=== PATIENT | male | born 1950 | race Caucasian/White ===

== ENCOUNTER 2024-02-18 14:56 | Observation (INO) | payer MEDICARE ==
[~2024-02-18] VITALS: Ht 172.7 cm; Wt 76.2 kg
[~2024-02-18 14:56] MED LIST: ASPIRIN CHEW81 MG PO; JALYN 0.5-0.41 EACH; METOPROLOL SUCC50 MG PO; OSTERA TABLET1 EACH PO
[2024-02-18] MEDS ORDERED: ONDANSETRON HCL INJ 2MG/ML 2ML 2 MG/ML VIAL IV PRN (16:15)
[2024-02-18] MEDS ORDERED: Morphine 4mg INJECTION 4 MG/ML INJ IV PRN (16:15)
[2024-02-18 16:27] LABS: BASOPHILS # (AUTO) 0.1 (0.0-0.1); BASOPHILS % 0.6 % (0.0-1.0); EOSINOPHILS # (AUTO) 0.1 (0.0-0.4); HEMATOCRIT 45.2 % (38.2-49.6); HEMOGLOBIN 15.4 g/dL (14.0-18.0); LYMPHOCYTES # (AUTO) 1.5 (1.0-3.2); LYMPHOCYTES % 13.6 % (18.0-39.1); MEAN CORPUSCULAR HEMOGLOBIN 32.8 pg (28-32); MEAN CORPUSCULAR HGB CONC 34.1 g/dL (31-35); MEAN CORPUSCULAR VOLUME 96.4 fL (81-99); MONOCYTES # (AUTO) 0.7 (0.2-0.8); MONOCYTES % 6.7 % (4.4-11.3); NEUTROPHILS # (AUTO) 8.6 (2.1-6.9); NEUTROPHILS % 77.8 % (38.7-80.0); PLATELET COUNT 240 x10e3/uL (140-360); RED BLOOD COUNT 4.69 x10e6/uL (4.3-5.7); RED CELL DISTRIBUTION WIDTH 12.3 % (11.7-14.4); WHITE BLOOD COUNT 11.02 x10e3/uL (4.8-10.8)
[2024-02-18] MEDS: SODIUM CHLORIDE 0.9% 1000ML 1,000 ML IV SCH (16:33)
[2024-02-18 16:50] LABS: ALBUMIN 4.2 g/dL (3.5-5.0); ALBUMIN/GLOBULIN RATIO 1.6 (0.8-2.0); ANION GAP 15.9 mmol/L (8-16); BILIRUBIN,TOTAL 1.3 mg/dL (0.2-1.2); CALCIUM 9.3 mg/dL (8.4-10.2); CREATININE, SERUM 1.25 mg/dL (0.72-1.25); POTASSIUM 3.9 mmol/L (3.5-5.1); TOTAL PROTEIN 6.8 g/dL (6.5-8.1)
[2024-02-18 18:00] VITALS: PULSE 67; RESP 16; TEMP 98.1
[2024-02-18 19:21] VITALS: BP 137/58; PULSE 89; RESP 18; TEMP 98.1; O2SAT 97
[2024-02-18] MEDS: METRONIDAZOLE 750MG/NS 150ML 150 ML IV SCH (19:34)
[2024-02-18 20:18] VITALS: PULSE 89; RESP 18; O2SAT 97
[2024-02-18 20:30] VITALS: BP 137/58; PULSE 89; RESP 18; TEMP 98.1; O2SAT 97
[2024-02-18] MEDS ORDERED: PROTONIX20 MG PO (21:39)
[2024-02-18] MEDS ORDERED: HYDROCHLOROTHIA25 MG PO (21:39)
[2024-02-18 23:09] VITALS: BP 134/72; PULSE 95; RESP 18; TEMP 98.3; O2SAT 98
[2024-02-19 03:10] VITALS: BP 134/73; PULSE 93; RESP 18; TEMP 98.5; O2SAT 96
[2024-02-19 05:42] LABS: BASOPHILS # (AUTO) 0.1 (0.0-0.1); BASOPHILS % 0.5 % (0.0-1.0); EOSINOPHILS # (AUTO) 0.1 (0.0-0.4); EOSINOPHILS % 1.2 % (0.0-6.0); HEMATOCRIT 42.3 % (38.2-49.6); LYMPHOCYTES # (AUTO) 2.5 (1.0-3.2); LYMPHOCYTES % 23.8 % (18.0-39.1); MEAN CORPUSCULAR HEMOGLOBIN 33.2 pg (28-32); MEAN CORPUSCULAR HGB CONC 35.5 g/dL (31-35); MEAN CORPUSCULAR VOLUME 93.6 fL (81-99); MONOCYTES # (AUTO) 0.8 (0.2-0.8); MONOCYTES % 7.5 % (4.4-11.3); NEUTROPHILS % 66.6 % (38.7-80.0); PLATELET COUNT 238 x10e3/uL (140-360); RED BLOOD COUNT 4.52 x10e6/uL (4.3-5.7); RED CELL DISTRIBUTION WIDTH 12.6 % (11.7-14.4); WHITE BLOOD COUNT 10.45 x10e3/uL (4.8-10.8)
[2024-02-19 06:05] VITALS: PULSE 92; RESP 20; O2SAT 96
[2024-02-19 06:26] LABS: ANION GAP 13.6 mmol/L (8-16); CALCIUM 8.9 mg/dL (8.4-10.2); CREATININE, SERUM 1.12 mg/dL (0.72-1.25); POTASSIUM 3.6 mmol/L (3.5-5.1)
[2024-02-19 08:00] VITALS: BP 133/57; PULSE 72; RESP 20; RESP 21; TEMP 98.2; O2SAT 97
[2024-02-19 11:09] VITALS: BP 116/65; PULSE 80; RESP 19; TEMP 97.6; O2SAT 97
[2024-02-19] MEDS ORDERED: PROPOFOL IV EMULSION 10 MG/ML 20 ML VIAL ONE (15:40)
[2024-02-19] MEDS ORDERED: DEXAMETHASONE SOD PHOS INJ 4 MG/ML SDV ONE (15:40)
[2024-02-19] MEDS ORDERED: LIDOCAINE HCL 2% LOCAL INJ 5 ML SDV VIAL INJ ONE (15:40)
[2024-02-19] MEDS ORDERED: FENTANYL CITRATE/PF 100MCG/2 ML INJ ONE (15:40)
[2024-02-19] MEDS ORDERED: HYDROCODONE/APAP 7.5MG-325MG 1 EA TAB PO PRN (16:30)
[2024-02-19 17:55] VITALS: BP 129/86; PULSE 78; RESP 19; TEMP 97.9; O2SAT 98
== END 2024-02-19 19:04 | disposition home or self-care (01) ==
LOC: ER 15:08 → ERHOLD 16:09 → MED/SURG 18:39
PROVIDERS: ADMIT Internal Medicine; ATTEND Internal Medicine
DX: T18.5XXA Foreign body in anus and rectum, initial encounter (principal); W44.B9XA Other plastic object entering into or through a natural orifice, initial encounter; I10 Essential (primary) hypertension; K57.90 Diverticulosis of intestine, part unspecified, without perforation or abscess without bleeding; N40.0 Benign prostatic hyperplasia without lower urinary tract symptoms; D72.829 Elevated white blood cell count, unspecified; Z91.040 Latex allergy status; Z79.899 Other long term (current) drug therapy
CPT/HCPCS: 36415 ×2; 45915; 74176; 80048; 80053; 83735; 85025 ×2; 94799 ×2; 99284; G0378 ×2; J0696 ×2; J1100; J2003; J2704; J3010; J7030 ×2